=== PATIENT | female | born 1955 | race Caucasian/White ===

== ENCOUNTER → 2017-01-07 | Outpatient (CLI) | payer MEDICARE ==
[~2017-01-07] MED LIST: ALPRAZOLAM PO; CALCIUM 500 + D1 TAB PO; CELEXA PO; LORTAB 7.5-5001 TAB PO; NEXIUM PO; PERCOCET10 PO; PHENERGAN25 M1 PO; PREMARIN PO
--- NOTE | ~2017-01-07 | CR63 ---
[facility]. [facility] A Service of [facility] RADIOLOGY TEXT RESULTS PATIENT: VIRGEN BROOKS LOCATION: [facility] : 51 UNIT #: [id number] AGE: [address]: Di Araiza [employer] SEX: F ORDER DR: [id number] [place] [id number] O MR#: [id number] Acc #: [id number] NAME: VIRGEN BROOKS : 1955 SEX: F STUDY DATE/TIME: 01/07/2017 16:43 UNIT: [facility] ROOM: STUDY DESCRIPTION: CR Chest 2 View Attending Physician: Di Araiza A.P.R.N. Ordering Physician: Di Araiza A.P.R.N. Primary Care Physician: Di Araiza A.P.R.N. MEDICAL IMAGING REPORT This report is preliminary unless electronic signature is present. EXAM PA and lateral chest INDICATIONS A 61-year-old female with chest pain recently. COMPARISON STUDIES Compared with 09/08/2016 FINDINGS Stable biapical scarring. No acute infiltrate. Heart size is normal. Degenerative changes thoracic spine. IMPRESSION No active disease Dictated by... Juanito Romero M.D. THIS IS AN ELECTRONICALLY VERIFIED REPORT Juanito Romero M.D. at 01/10/2017 11:16 AM JUDITH/sam TD: 01/07/2017 22:39 JOB #: [id number] MEDICAL IMAGING REPORT Page 1 of 1
== END | disposition home or self-care (01) ==
LOC: SRAD 16:26
DX: R07.9 Chest pain, unspecified (principal)
CPT/HCPCS: 71020